=== PATIENT | female | born 1995 | race Caucasian/White ===

== ENCOUNTER 2024-08-31 08:10 | Day surgery (SDC) | payer BC ==
[~2024-08-31] VITALS: Ht 167.6 cm; Wt 57.5 kg
[~2024-08-31 08:10] MED LIST: AMIT25TA19 PO; LIDOCAINE 2% 100MG/5ML SDV (FOR ANES.) As Ordered ONE; LINZ290C PO; TOPI100T9 PO; birth control; propofoL 200 MG/20 ML VIAL As Ordered ONE
[2024-08-31 09:25] VITALS: BP 98/56; O2SAT 99
== END 2024-08-31 09:32 | disposition home or self-care (01) ==
LOC: M OPP 08:10
PROVIDERS: ATTEND Internal Medicine Gastroenterology
DX: K58.1 Irritable bowel syndrome with constipation (principal); K64.8 Other hemorrhoids; R93.3 Abnormal findings on diagnostic imaging of other parts of digestive tract; K21.9 Gastro-esophageal reflux disease without esophagitis; Z79.899 Other long term (current) drug therapy

== ENCOUNTER → 2025-05-13 | Outpatient (REF) | payer BC ==
[~2025-05-13] MED LIST changes: -LIDOCAINE 2% 100MG/5ML SDV (FOR ANES.) As Ordered ONE; +TOPI-257 PO; -TOPI100T9 PO; -propofoL 200 MG/20 ML VIAL As Ordered ONE
[2025-05-13 16:35] LABS: APPEARANCE, URINE CLEAR (CLEAR); BACTERIA, URINE AUTO NEGATIVE (NEGATIVE); BILIRUBIN, URINE AUTO NEGATIVE (NEGATIVE); BLOOD, URINE BLOOD NEGATIVE (NEGATIVE); GLUCOSE, URINE (UA) AUTO NEGATIVE (NEGATIVE); KETONE, URINE AUTO NEGATIVE (NEGATIVE); LEUKOCYTE ESTERASE, URINE AUTO NEGATIVE (NEGATIVE); MUCUS, URINE SMALL (NEGATIVE); NITRITE, URINE AUTO NEGATIVE (NEGATIVE); PROTEIN, URINE AUTO NEGATIVE (NEGATIVE); RBC, URINE AUTO 0 /HPF (0-3); SPECIFIC GRAVITY URINE AUTO 1.015 (1.002-1.035); SQUAMOUS EPITHELIAL CELL UR AU 6 /HPF (0-6); UROBILINOGEN, URINE AUTO 0.2 mg/dL (0.0-2.0); WBC, URINE AUTO 0 /HPF (0-3)
== END ==
LOC: M SMT 13:00
PROVIDERS: ATTEND Urology
DX: R31.0 Gross hematuria (principal); N39.0 Urinary tract infection, site not specified